=== PATIENT | male | born 1995 | race Two or more races ===

== ENCOUNTER → 2017-01-14 | Outpatient (CLI) | payer MEDICAID | LOC: OD 15:11 | PROVIDERS: ATTEND Physician Assistant | DX: S23.41XA Sprain of ribs, initial encounter (principal); X58.XXXA Exposure to other specified factors, initial encounter ==

== ENCOUNTER → 2019-04-02 | Outpatient (CLI) | payer MEDICAID ==
--- NOTE | 2019-04-02 17:12 | RADIOLOGY REPORT (SQ) ---
EXAM DESCRIPTION: CHEST PA/LATERAL COMPLETED DATE/TIME: 04/02/2019 5:02 pm REASON FOR STUDY: RIB PAIN ON RT SIDE COMPARISON: None. EXAM PARAMETERS: NUMBER OF VIEWS: two views TECHNIQUE: Digital Frontal and Lateral radiographic views of the chest acquired. RADIATION DOSE: NA LIMITATIONS: none FINDINGS: LUNGS AND PLEURA: No opacities, masses or pneumothorax. No pleural effusion. MEDIASTINUM AND HILAR STRUCTURES: No masses or contour abnormalities. HEART AND VASCULAR STRUCTURES: Heart normal size. No evidence for failure. BONES: No acute findings. HARDWARE: None in the chest. OTHER: No other significant finding. IMPRESSION: NO SIGNIFICANT RADIOGRAPHIC FINDING IN THE CHEST. TECHNICAL DOCUMENTATION: JOB ID: [id number] [employer]- All Rights Reserved Reading location - IP/workstation name: [email or web address]
--- NOTE | 2019-04-02 17:12 | RADIOLOGY REPORT (SQ) ---
EXAM DESCRIPTION: RIBS RIGHT W/O PA CHEST COMPLETED DATE/TIME: 04/02/2019 5:02 pm REASON FOR STUDY: RIB PAIN ON RT SIDE R07.81 PLEURODYNIA COMPARISON: None. NUMBER OF VIEWS: Four views. TECHNIQUE: Images acquired of the right ribs in the area of focal concern. LIMITATIONS: None. FINDINGS: RIBS: No acute displaced fracture. No worrisome bone lesions. LUNGS: Limited exam. No obvious pneumothorax. No pleural effusion. OTHER: No other significant finding. IMPRESSION: NO ACUTE DISPLACED RIB FRACTURE. COMMENT: SITE OF TRAUMA/COMPLAINT MARKED/STAMP COMPLETED: YES. TECHNICAL DOCUMENTATION: JOB ID: [id number] [employer]- All Rights Reserved Reading location - IP/workstation name: [email or web address]
== END ==
LOC: OD 16:43
PROVIDERS: ATTEND Family Medicine
DX: R07.81 Pleurodynia (principal)
CPT/HCPCS: 71046